=== PATIENT | male | born 1950 | race Caucasian/White ===

== ENCOUNTER → 2023-06-27 | Outpatient (CLI) | payer OTHER, SELFPAY ==
--- NOTE | 2023-06-27 12:56 | US_ITS ---
INDICATION: Chronic kidney disease, unspecified EXAMINATION: Ultrasound US Kidney(s) complete (eg, kidneys and bladder) TECHNIQUE: Burdick scale and color doppler images were obtained of the kidneys. COMPARISON: FINDINGS: RIGHT KIDNEY: 11.7 x 5.3 x 5.8 cm. The cortex is 16mm. There is no hydronephrosis. No shadowing calculus or perinephric collection is demonstrated. There are cysts up to 5.3 cm. LEFT KIDNEY: 7.5 x 3.5 x 3.3 cm. The cortex is 12 mm. There is no hydronephrosis. No shadowing calculus or perinephric collection is demonstrated. There is a 3.6 cm cyst. URINARY BLADDER: No acute abnormality. US/Kidney and Bladder IMPRESSION: Slightly atrophic left kidney. Bilateral renal cysts. Electronically Signed: Gaston Serna DO at 17:26 EDT ,
== END | disposition home or self-care (01) ==
LOC: US 12:53
PROVIDERS: PCP Nurse Practitioner Primary Care
DX: N18.9 Chronic kidney disease, unspecified (principal)
CPT/HCPCS: 76770

== ENCOUNTER → 2023-10-31 | Outpatient (CLI) | payer OTHER, SELFPAY ==
--- NOTE | 2023-10-31 06:57 | CT_ITS ---
STUDY: CT CHEST WITHOUT CONTRAST REASON FOR EXAM: Male, 73 years old. CONTACT W/HAZARDOUS SUBSTANCES (? EXPOSURE) RADIATION DOSAGE (If Supplied By Facility): CTDIvol = ( 18.78 ) mGy, DLP = ( 680.40 ) mGycm TECHNIQUE: Transaxial imaging was performed without the administration of intravenous contrast material. Multiplanar coronal and sagittal images were reformatted. Individualized dose optimization techniques were used for this CT. COMPARISON: No relevant priors. FINDINGS: CHEST Mild degree of increased interstitial markings at the lung bases slightly more prominent in the posterior medial segment of the right lower lobe suggestive of scarring. There is no demonstrated pleural abnormality. There are calcifications of the coronary arteries. Normal mediastinum. Normal hilar regions. Normal unenhanced pulmonary arteries. There is atherosclerotic calcification of the aortic arch. There are degenerative changes of the thoracic spine. Atrophy of the left kidney. Multiple right renal cysts. CT/Chest without Contrast IMPRESSION: Findings suggestive of mild scarring at the lung bases. Right renal cysts. Electronically Signed: Kentrell Ling MD at 10:21 EDT ,
== END | disposition home or self-care (01) ==
LOC: CT 06:57
PROVIDERS: PCP Nurse Practitioner Primary Care
DX: R91.8 Other nonspecific abnormal finding of lung field (principal)
CPT/HCPCS: 71250

== ENCOUNTER → 2023-11-03 | Outpatient (CLI) | payer OTHER, SELFPAY ==
--- NOTE | 2023-11-03 08:15 | RDU_ITS ---
Reason For Study: CKD Right Renal Artery Left Renal Artery Right renal artery ostium Left renal artery ostium 166.3/36.8 131.1/43.0 RSV/EDV. PSV/EDV. Right renal artery proximal Left renal artery proximal PSV/EDV 157.0/50.8 PSV/EDV. 168.1/46.4 . Right renal artery mid 110.4/48.2 Left renal artery mid 131.9/41.2 PSV/EDV. PSV/EDV . Right renal artery distal Left renal artery distal 123.3/37.8 133.7/40.4 PSV/EDV. PSV/EDV. Right RAR 1.92. Left RAR 2.1. Right Renal Parenchyma Left Renal Parenchyma Upper Pole Medula 48.2/9.3 PSV/EDV. Left upper pole medulla 25.2/8.2 Right upper pole medulla EDR 0.20 . PSV/EDV . Right upper pole medulla R.I. Left upper pole medulla EDR 0.30 . 0.81 . Left upper pole medulla R.I. 0.68 . Upper Ej Cortx 27.6/7.5 PSV/EDV. UP Cortex 18.1/7.1 PSV/EDV. Right upper pole cortex EDR 0.30 . Left upper pole cortex EDR 0.40 . Right upper pole cortex R.I. 0.73 . Left upper pole cortex R.I. 0.61 . Right lower Pole medulla 33.5/9.3 Left lower Pole medulla 28.5/5.4 PSV/EDV . PSV/EDV . Right lower pole medulla EDR 0.30 . Left lower pole medulla EDR 0.20 . Right lower pole medulla R.I. Left lower pole medulla R.I. 0.81 . 0.72 . Lower Pole Cortx 18.1/5.4 PSV/EDV. Lower Pole Cortex 20.3/7.1 PSV/EDV. Left lower pole cortex EDR 0.30 . Right lower pole cortex EDR 0.30 . Left lower pole cortex R.I. 0.70 . Right lower pole cortex R.I. 0.65 . Left Renal Hilar Right Renal Hilar LT Hilar avg 82.3/13.1 PSV/EDV . Right Hilar avg 100.0/27.5 PSV/EDV. Left hilar acceleration time 40 Right hilar acceleration time 50 m/sec. m/sec. Left Renal Dimensions Right Renal Dimensions Left kidney size 9.48 cm . Right kidney size 10.55 cm . Left cortical dimension 1.33 cm . Right cortical dimension 2.01 cm . Anechoic non vascularized area Multiple anechoic non vascularized noted within Lt Kidney measuring areas noted within Rt Kidney approximately 2.69cm x 2.41cm. measuring approximately 2.63cm x 2.89cm and 3.79cm x 3.54cm. Aorta Proximal abdominal aorta 2.06 x 2.20 cm . Proximal abdominal aorta peak systolic velocity is 81.8 cm/sec . Distal abdominal aorta 1.61 x 1.67 cm . Distal abdominal aorta peak systolic velocity is 144.1 cm/sec . VL/Renal Artery Duplex Ultrasound Interpretation Summary Right renal artery patent with normal velocities and no evidence of stenosis. Left renal artery patent with normal velocities and no evidence of stenosis. Right renal vein patent. Left renal vein patent. Right kidney normal in size. Left kidney normal in size. Multiple anechoic non vascularized areas noted within right kidney measuring ap proximately 2.63cm x 2.89cm and 3.79cm x 3.54cm. Anechoic non vascularized area noted within left kidney measuring approximately 2.69cm x 2.41cm. Ordering Physician: ASH MAI Referring Physician: Soco Chen Performed By: Jasiel Agarwal RVPraful
== END | disposition home or self-care (01) ==
LOC: US 08:12
PROVIDERS: PCP Nurse Practitioner Primary Care
DX: N18.9 Chronic kidney disease, unspecified (principal)
CPT/HCPCS: 93975

== ENCOUNTER → 2024-04-17 | Outpatient (CLI) | payer OTHER, SELFPAY ==
--- NOTE | 2024-04-17 08:06 | CT_ITS ---
PROCEDURE: ABDOMEN/PELVIS WITHOUT CONT REASON FOR EXAM: One-month history of bilateral flank pain. Under developed left kidney. TECHNIQUE: Abdomen and pelvis CT without intravenous contrast. COMPARISON: None. FINDINGS: Lung bases: Minimal increased linear markings at the right lung base suggestive of mild atelectasis and/or scarring. Liver: Unremarkable. Gallbladder: Unremarkable. Spleen: Unremarkable. Pancreas: Diffuse fatty atrophy. Adrenals: Unremarkable. Kidneys: Small left kidney. Multiple bilateral renal cysts. The largest cyst in the lower pole of the right kidney measures 4.7 cm by 3.8 cm. Peripheral calcification is seen along the dominant cyst along its lateral peripheral aspect. No obstructive uropathy is seen. Bladder: Unremarkable. The prostate measures 3.3 cm by 5.2 cm. Reproductive Organs: Unremarkable. Bowel: Colonic diverticulosis without diverticulitis. Appendix: Normal. Lymph nodes: No suspicious lymph node enlargement. Vasculature: Mild diffuse atherosclerotic calcifications of the abdominal aorta and major visceral branches are noted. Peritoneum / Retroperitoneum: No ascites. No free air. Bones: Demineralization of the visualized lumbar vertebrae. CT/Abdomen/Pelvis without Cont IMPRESSION: Minimal scarring and/or atelectasis at the right lung base. Atrophy of the left kidney. Multiple bilateral renal cysts more dominant in th e right kidney. Dominant cyst in the inferior pole of the right kidney with peripheral calcification. A repeat CT scan with IV contrast or MRI recommended for further evaluation. Pancreatic atrophy. One or more dose reduction techniques were used (e.g., Automated exposure contr ol, adjustment of the mA and/or kV according to patient size, use of iterative reconstruction technique). Reading Location: [id number]
== END | disposition home or self-care (01) ==
PROVIDERS: PCP Nurse Practitioner Primary Care; Referring Provider Nurse Practitioner Gerontology; Visit Provider Nurse Practitioner Gerontology
DX: R10.31 Right lower quadrant pain (principal); E11.22 Type 2 diabetes mellitus with diabetic chronic kidney disease; N18.9 Chronic kidney disease, unspecified; N28.1 Cyst of kidney, acquired; I70.1 Atherosclerosis of renal artery
CPT/HCPCS: 74176